=== PATIENT | female | born 1990 | race Caucasian/White ===

== ENCOUNTER 2016-08-03 15:29 | Observation (INO) | payer MEDICAID ==
[~2016-08-03] VITALS: Ht 165.1 cm; Wt 84.5 kg
[~2016-08-03 15:29] MED LIST: CYCL-375 PO; PREN1TAB73 PO
[2016-08-03] MEDS ORDERED: LR 1,000 ML IV ONE (15:46)
[2016-08-03 16:20] LABS: HCT - HEMATOCRIT 40.9 % (36-46); HGB - HEMOGLOBIN 13.3 GM/DL (12-16); MEAN CORPUSCULAR HGB 28.3 UUG (26-34); MEAN CORPUSCULAR HGB CONC(MCHC 32.5 GM/DL (31-37); MEAN PLATELET VOLUME 9.9 UM3 (9.4-12.4); WBC - WHITE BLOOD COUNT 12.7 T/MM3 (4.5-11.0)
[2016-08-03 16:34] LABS: BAND NEUTROPHILS # 1.4 T/MM3; BASOPHILS # (MANUAL) 0.3 T/MM3 (0-0.2); LYMPHOCYTES # (MANUAL) 0.5 T/MM3 (1-4.8); MONOCYTES # (MANUAL) 0.3 T/MM3 (0-0.8); NEUTROPHILS #(MANUAL)-ABSOLUTE 10.2 T/MM3 (1.8-7.7); REACTIVE LYMPHOCYTES # 0.1 T/MM3 (0-0); TOTAL CELLS COUNTED 100 %
[2016-08-03 16:45] LABS: ALBUMIN 3.4 G/DL (3.5-5.0); ALBUMIN/GLOBULIN RATIO 1.1 RATIO (1.1-2.2); ALKALINE PHOSPHATASE 220 U/L (38-126); ALT (SGPT) 30 U/L (9-52); ANION GAP 9 MEQ/L (5-15); AST (SGOT) 27 U/L (14-36); BUN/CREATININE RATIO 17 RATIO (6-26); CALCIUM 8.8 MG/DL (8.4-10.2); CHLORIDE 108 MEQ/L (98-107); CO2 - CARBON DIOXIDE 22 MEQ/L (22-30); CREATININE 0.6 MG/DL (0.7-1.2); GLOMERULAR FILTRATION RATE 120; GLUCOSE 82 MG/DL (65-110); SODIUM 139 MEQ/L (134-144); TOTAL PROTEIN 6.4 G/DL (6.3-8.2)
[2016-08-03] MEDS ORDERED: ACETAMINOPHEN 500 MG TABLET PO ONE (16:45)
[2016-08-03] MEDS ORDERED: LR 1,000 ML IV SCH (17:15)
[2016-08-03] MEDS: D5LR 1,000 ML IV SCH (19:50)
[2016-08-03 20:25] VITALS: BP 133/74; PULSE 104; RESP 18; TEMP 98.2; O2SAT 99
--- NOTE | 2016-08-03 20:25 | NUR ---
ADMIT DIRECT ADMIT FROM MATERNAL CHILD OBSERVATION TO MEDICAL RM [id number]
[2016-08-03 20:32] VITALS: Ht 165.1 cm; Wt 84.5 kg
[2016-08-03] MEDS ORDERED: CALCIUM CARBONATE 750mg Chewable TAB PO PRN (20:45)
[2016-08-03] MEDS: METRONIDAZOLE 500 MG TABLET PO SCH (21:50)
[2016-08-03] MEDS: ACETAMINOPHEN 500 MG TABLET PO PRN (22:47)
--- NOTE | 2016-08-03 22:47 | NUR ---
BEHAVIOR ANSWERED CALL LIGHT TO FIND PT UPSET AND CRYING, APPEARS VERY EMOTIONAL WITH ERRATIC BEHAVIOR. REPORTS HER BACK PAIN IS 10/10. SHE WAS SITTING ON THE FLOOR, LEANING AGAINST THE WALL. REPORTS SHE SAT ON THE FLOOR BECAUSE IT IS "COOL" AND MORE COMFORTABLE FOR HER. GAVE TYLENOL PO FOR PAIN. AFTER TAKING THE TYLENOL PT THREW THE EMPTY MEDICINE CUP ACROSS THE ROOM AND YELLED "GET OUT."
--- NOTE | 2016-08-03 23:00 | NUR ---
CARE THIS RN RESUMING PT CARE AT THIS TIME.
--- NOTE | 2016-08-03 23:00 | NUR ---
BEHAVIOR PT APOLOGIZED TO STAFF FOR HER EARLIER BEHAVIOR, SAYS SHE WAS FRUSTRATED ABOUT NOT FEELING WELL.
[2016-08-04 00:28] VITALS: BP 118/60; PULSE 106; RESP 18; TEMP 98.8; O2SAT 95
--- NOTE | 2016-08-04 01:00 | NUR ---
Chart Check 24 hour chart check completed
[2016-08-04] MEDS: D5LR 1,000 ML IV SCH (02:35)
[2016-08-04] MEDS: ACETAMINOPHEN 500 MG TABLET PO PRN (05:02)
[2016-08-04 05:03] VITALS: BP 120/67; PULSE 99; RESP 20; TEMP 97.5; O2SAT 96
--- NOTE | 2016-08-04 05:18 | NUR ---
SHIFT SUMMARY PT HAS SLEPT SOUNDLY THROUGHOUT THE NIGHT. PT GIVEN TYLENOL FOR PAIN, SEE EMAR FOR TIMES. DENIES N/V/SOA SINCE 2300 LAST NIGHT. PT UP AD JAZZMINE TO BATHROOM, STEADY GAIT. CONTACT PRECAUTIONS IN USE DUE TO POSITIVE C-DIFF AND NOROVIRUS RESULTS. REGULAR DIET. D5LR RUNNING @ 150ML/HR IN LEFT HAND. PT ON RA, TACHYCARDIA AT TIMES IN LOW 100S. BED LOCKED AND LOW, CALL LIGHT WITHIN REACH. WILL CONTINUE TO MONITOR.
[2016-08-04] MEDS: METRONIDAZOLE 500 MG TABLET PO SCH (06:03)
[2016-08-04 07:09] LABS: BASOPHILS % (AUTO) 0.1 % (0-2); EOSINOPHILS % (AUTO) 0.1 % (0-4); HCT - HEMATOCRIT 35.7 % (36-46); HGB - HEMOGLOBIN 11.5 GM/DL (12-16); IMMATURE GRANULOCYTE # (AUTO) 0.04 T/MM3 (0.00-0.03); IMMATURE GRANULOCYTE % (AUTO) 0.4 % (0.0-0.5); LYMPHOCYTES % (AUTO) 10.7 % (23-45); MEAN CORPUSCULAR HGB 27.9 UUG (26-34); MEAN CORPUSCULAR HGB CONC(MCHC 32.2 GM/DL (31-37); MEAN CORPUSCULAR VOLUME 86.7 UM3 (80-100); MEAN PLATELET VOLUME 10.1 UM3 (9.4-12.4); MONOCYTES # (AUTO) 0.6 T/MM3 (0-0.8); MONOCYTES % (AUTO) 6.6 % (0-9.0); NEUTROPHILS #(AUTO)-ABSOLUTE 7.8 T/MM3 (1.8-7.7); NEUTROPHILS % (AUTO) 82.1 % (33-66); RED BLOOD COUNT 4.12 M/MM3 (4.00-5.20); WBC - WHITE BLOOD COUNT 9.6 T/MM3 (4.5-11.0)
[2016-08-04 07:24] LABS: ANION GAP 7 MEQ/L (5-15); BUN/CREATININE RATIO 14 RATIO (6-26); CALCIUM 8.8 MG/DL (8.4-10.2); CHLORIDE 107 MEQ/L (98-107); CO2 - CARBON DIOXIDE 21 MEQ/L (22-30); CREATININE 0.5 MG/DL (0.7-1.2); GLOMERULAR FILTRATION RATE 148; GLUCOSE 102 MG/DL (65-110); POTASSIUM 3.5 MEQ/L (3.6-5); SODIUM 135 MEQ/L (134-144)
[2016-08-04 07:31] VITALS: BP 105/56; PULSE 92; RESP 16; TEMP 97.2; O2SAT 97
[2016-08-04] MEDS ORDERED: ACETAMINOPHEN/CODEINE 300mg/30mg TABLET PO PRN (09:15)
[2016-08-04] MEDS: POTASSIUM CHLORIDE 20 MEQ in D5LR 1,000 ML IV SCH ×2 (09:58→15:25)
[2016-08-04 11:39] VITALS: BP 113/76; PULSE 90; RESP 18; TEMP 96.9; O2SAT 98
[2016-08-04] MEDS ORDERED: METRONIDAZOLE 500 MG TABLET PO SCH ×2 (14:00→22:00)
[2016-08-04] MEDS ORDERED: INFLUENZA VAC QIV 2016-17 (Fluarix*)(>=3yo) 0.5ml IM ONE (14:00)
[2016-08-04 15:24] VITALS: BP 115/65; PULSE 91; RESP 18; TEMP 97.7; O2SAT 97
--- NOTE | 2016-08-04 18:32 | NUR ---
SHIFT SUMMARY PT ALERT AND ORIENTED X3. PT ON RA, DENIES SOA. DENIES N/V AT THIS TIME, PT DID HAVE SMALL AMOUNTS OF EMESIS EARLIER THIS SHIFT. ADEQUATE URINE OUTPUT. PT STATES SHE HAS NOT HAD DIARRHEA SINCE 1100 THIS MORNING. PRN TYLENOL AND TYLENOL WITH CODEINE ADMINISTERED, SEE EMAR. PT REPORTS DECREASED BACK PAIN. IVF INFUSING ORDERED INTO LEFT HAND. PT ABLE TO MAKE NEEDS KNOWN, UP AD JAZZMINE AND STEADY ON FEET. CALL LIGHT WITHIN REACH.
[2016-08-04] MEDS ORDERED: METR500T PO (18:39)
--- NOTE | 2016-08-04 18:40 | PNPDOC ---
Prog Note 08/04/16 progress notes from yesterday and today dictated. CARMELINA RESENDIZ MD Aug 04, 2016 18:40
[2016-08-04] MEDS ORDERED: INFLUENZA VAC. ADMIN CHARGE INJ ONE (19:34)
--- NOTE | 2016-08-04 19:35 | NUR ---
discharged patient patient discharged to home. instructions reviewed with patient. iv removed. belongings sent with patient.
--- NOTE | 2016-08-04 20:05 | PNF ---
DATE: 08/03/2016 TIME OF EXAMINATION: 6:30 p.m. SUBJECTIVE This is a 26-year-old white female patient who is 38 weeks 1 day gestational age . She has previous and plans to in [place]. She came in to our emergency room and then was transferred to Maternal/Child unit for evaluation. heart tones initially were tachycardic. Her whole body ached. She had nausea, vomiting and diarrhea which were all severe. It had begun at 2:00 a.m. on the . She has good movement. "My whole body aches." She was afebrile with a temperature of 98. I did a CBC, CMP and we had a stool sample so I did a stool culture screen. We started an IV and started rehydrating her. The stool culture came back for positive for C-difficile and norovirus. White count was slightly elevated with a left shift. heart tones resolved from the tachycardia and became reactive with a baseline of 155-160. I put her in the hospital because of her inability to keep herself hydrated and we started Flagyl 500 mg p.o. q.8h. I will repeat lab in the morning. I gave the patient the diagnosis. Will put her on medical unit with infection precautions to keep her away from the patients. Questions were answered to her satisfaction. ROSY
--- NOTE | 2016-08-04 20:07 | PNF ---
DATE: August 04, 2016 TIME: 8:30 a.m. SUBJECTIVE: The patient's lab was reviewed. She has had four episodes of diarrhea since 6: 00 a.m. She is feeling slightly better. She had back pain during the night. Will add a heating pad and switch her regular Tylenol to Tylenol #3 to help with her back pain. She is having good movement. Things have improved slightly but are not markedly improved. I touched base with the hospitalist, Dr. Preciado, regarding additional recommendations. Questions were answered to the patient's satisfaction. I will add potassium to her IV and continuous hydration. ROSY
--- NOTE | 2016-08-04 20:11 | PNF ---
DATE: 08/04/2016 TIME: 1830 hours SUBJECTIVE The patient has not had any diarrhea since noon and her vomiting has decreased also. She is feeling much better. Other family members have been tested and they all have norovirus but not the Clostridium difficile. She is tolerating fluids and eating just fine now. She would really like to go home tonight, sleep in her own bed and shower in her own shower. heart tone NST was done during the day and she was having good movement. I will start arranging things to let her go home. She has a followup appointment Tuesday in [place]. Will keep her on Flagyl 500 mg p.o. q.8h. for a 14-day course. MTDD
[2017-08-03] MEDS ORDERED: METRONIDAZOLE 500 MG TABLET PO SCH (22:15)
== END 2016-08-04 19:35 | disposition home or self-care (01) ==
LOC: MC 15:29 → OBOBS 15:29 → MED 20:20
PROVIDERS: ADMIT Obstetrics & Gynecology; ATTEND Obstetrics & Gynecology
DX: O98.513 Other viral diseases complicating pregnancy, third trimester (principal); A08.11 Acute gastroenteropathy due to Norwalk agent; O98.813 Other maternal infectious and parasitic diseases complicating pregnancy, third trimester; B96.89 Other specified bacterial agents as the cause of diseases classified elsewhere; Z23 Encounter for immunization; Z3A.38 38 weeks gestation of pregnancy
CPT/HCPCS: 36415; 59025; 80048; 80053; 85025; 87507; 90686; 96360; 96361; 96372; G0008; G0378; J3480; J7120; J7121; 99218